=== PATIENT | male | born 1955 | race African-American/Black ===

== ENCOUNTER 2020-02-11 19:02 | Emergency (ER) | payer MEDICARE, OTHER ==
[~2020-02-11 19:02] MED LIST: EPINEPHrine 1 MG/10 ML Abboject SYRINGE ONE; PROPOFOL 200 MG/20 ML VIAL ONE; Rocuronium Bromide 10 MG/ML (10ML VIAL) ONE; Succinylcholine Chloride 20 MG/ML 10 ml SYRINGE FS ONE
[2020-02-11] MEDS ORDERED: Propofol 1,000 MG/100 ML VIAL IV ONE (20:10)
[2020-02-11] MEDS ORDERED: PROPOFOL 0 ML ONE (20:10)
--- NOTE | 2020-02-11 20:21 | RAD ---
Exam: Chest one view HISTORY:Blood clotting trachea. Intubation. Comparison: 06/17/2019 FINDINGS: Lines and tubes: There appears to be a tracheostomy and endotracheal tube. Right-sided vascular [address]. Cardiac silhouette: Normal Aorta: Unremarkable Pulmonary vessels: Normal Costophrenic angles: Small left-sided effusion cannot be excluded. LUNGS: Chronic lung parenchymal changes. Persistent diminished lung volumes. Pneumothorax: None Osseous abnormalities: None IMPRESSION: 1. Lines and tubes as above. 2. Persistently diminished lung volumes with chronic changes in the lung bases.
[2020-02-11 20:50] LABS: Hemoglobin 13.5 g/dL (14.0-18.0); Mean Corpuscular HGB CONC 31.3 g/dL (32.0-36.0); Mean Corpuscular Hemoglobin 27.6 pg (27.0-31.0); Mean Corpuscular Volume 88.3 fL (78.0-98.0); Mean Platelet Volume 8.8 fL (7.4-10.4); Platelet Count 294 thou/uL (130-400); RBC Distribution Width 14.8 % (11.5-14.5); Red Blood Cell (RBC) Count 4.89 mill/uL (4.70-6.10); White Blood Cell (WBC) Count 28.6 thou/uL (4.8-10.8)
[2020-02-11 21:03] LABS: ALT (SGPT) 28 U/L (8-55); AST (SGOT) 33 U/L (5-34); Albumin 4.2 g/dL (3.4-4.8); Alkaline Phosphatase 81 U/L (40-110); Anion Gap 18 mmol/L (10-20); BUN (Urea Nitrogen) 14 mg/dL (8.4-25.7); CK (CPK) 268 U/L (30-200); Calc. Creatinine Clearance 0 mL/min (70-130); Calcium 9.2 mg/dL (7.8-10.44); Carbon Dioxide 18 mmol/L (23-31); Chloride 107 mmol/L (98-107); Estimated GFR-MDRD Greater than 90; Globulin 3.5 g/dL (2.4-3.5); Glucose 270 mg/dL (80-115); Potassium 3.5 mmol/L (3.5-5.1); Protein, Total 7.7 g/dL (5.8-8.1); Sodium 139 mmol/L (136-145)
[2020-02-11 21:07] LABS: Band 6 % (5-11); Lymphocytes 9 % (21-51); MDiff Complete? YES; Monocytes 5 % (0-10); Neutrophil 80 % (42-75); Nucleated RBC 1 % (0); Platelet Morphology Comment Appears Adequate; RBC Morphology Normal
--- NOTE | 2020-02-12 07:28 | RAD ---
Exam: Chest one view HISTORY:Tube placement Comparison: 02/11/2020 9:00 PM FINDINGS: Lines and tubes: Redemonstration of endotracheal tube, tracheostomy and right-sided vascular catheter . Interval placement of a nasogastric tube which extends beyond the diaphragm. Distal tip appears to be any distended stomach. Otherwise, no change. IMPRESSION: Interval placement of NG tube.
== END 2020-02-11 20:50 | disposition short-term general hospital (02) ==
LOC: NAV ERS 19:02
DX: J96.00 Acute respiratory failure, unspecified whether with hypoxia or hypercapnia (principal); I46.9 Cardiac arrest, cause unspecified
CPT/HCPCS: 31500; 36415; 71045; 80053; 82550; 83880; 84484; 85025; 92950; 96361; 96374; 96375; J0171; J2704